=== PATIENT | female | born 1990 ===

== ENCOUNTER 2016-10-23 10:20 | Emergency (ER) | payer MEDICAID ==
[2016-10-23 10:21] VITALS: BMI 43.9
[2016-10-23 10:30] VITALS: BP 117/68; PULSE 76; RESP 20; TEMP 98.6; O2SAT 100
[2016-10-23] MEDS ORDERED: Sodium Chloride 0.9% 1,000 ML IV STA (12:06)
[2016-10-23] MEDS ORDERED: DiphenhydrAMINE 50 mg/ml Inj IVP STA (12:06)
--- NOTE | 2016-10-23 12:30 | ED PDOC ---
HPI: General Adult Time Seen by Provider: 10/23/16 12:27 Chief Complaint (Nursing): Chest Pain Chief Complaint (Provider): chest pain History Per: Patient History/Exam Limitations: no limitations Additional Complaint(s): 26yo F in ED for eval of EMERY x 3 months was seen at primary and neurologist- states she was never given a Dx but given "medication" not taking them because she doesn't like the feeling. PT states EMERY is unilateral( right) of face, with photo/phonopohbia, some nausea without vomiting, pressure sensation and weakness. PT with hx of lupus and HTN. not currently on medication for lupus. not worst EMERY of life. PT is supposed to be f.u with neurologist for MRI/ Past Medical History Reviewed: Historical Data, Nursing Documentation, Vital Signs Vital Signs: Last Vital Signs Temp 98.6 F 10/23/16 10:30 Pulse 76 10/23/16 10:30 Resp 20 10/23/16 10:30 BP 117/68 10/23/16 10:30 Pulse Ox 100 10/23/16 14:11 - Medical History PMH: Asthma, HTN (not on meds) - Family History Family History: States: Unknown Family Hx - Immunization History Hx Tetanus Toxoid Vaccination: No Hx Influenza Vaccination: No Hx Pneumococcal Vaccination: No - Home Medications Home Medications: Ambulatory Orders Medication Instructions Recorded Cephalexin [Keflex] 500 mg PO BID #14 capsule 07/18/16 Phenazopyridine [Phenazopyridine 200 mg PO TID #6 tab 07/18/16 HCl] Meclizine [Meclizine*] 25 mg PO Q6 #30 tab 10/23/16 - Allergies Allergies/Adverse Reactions: Allergies Allergy/AdvReac Type Severity Reaction Status Date / Time No Known Allergies Allergy Verified 10/23/16 10:24 Review of Systems ROS Statement: Except As Marked, All Systems Reviewed And Found Negative Constitutional: Negative for: Fever, Chills Cardiovascular: Positive for: Chest Pain Respiratory: Negative for: Cough, Shortness of Breath Neurological: Positive for: Headache Physical Exam - Reviewed Nursing Documentation Reviewed: Yes Vital Signs Reviewed: Yes - Physical Exam Appears: Positive for: Non-toxic, No Acute Distress, Uncomfortable Head Exam: Positive for: ATRAUMATIC, NORMAL INSPECTION, NORMOCEPHALIC Skin: Positive for: Normal Color, Warm, DRY Eye Exam: Positive for: EOMI, Normal appearance, PERRL Neck: Positive for: Normal, Painless ROM Cardiovascular/Chest: Positive for: Regular Rate, Rhythm Respiratory: Positive for: CNT, Normal Breath Sounds Gastrointestinal/Abdominal: Positive for: Normal Exam, Bowel Sounds, Soft. Negative for: Tenderness Neurologic/Psych: Positive for: Alert, Oriented - Laboratory Results Result Diagrams: 10/23/16 13:30 10/23/16 13:30 - ECG O2 Sat by Pulse Oximetry: 100 - Progress ED Course And Treament: impression-migraine like EMERY will get Reglan, Benadryl NS fluids and torodol Medical Decision Making Medical Decision Making: Pt with UTI symptoms pt has some improvement but still with nausea and dizziness will give meclinze and zofran. pt labs are otherwise unremarkable. Disposition - Clinical Impression Clinical Impression: Headache - Patient ED Disposition Is Patient to be Admitted: No Counseled Patient/Family Regarding: Studies Performed, Diagnosis, Need For Followup, Rx Given - Disposition Referrals: [facility] [Outside] Mani Torres MD [Staff Provider] - Disposition: Routine/Home Disposition Time: 16:49 Condition: STABLE Prescriptions: Meclizine [Meclizine*] 25 mg PO Q6 #30 tab Instructions: Migraine Headache (ED), Tension Headache (ED)
[2016-10-23] MEDS ORDERED: DiphenhydrAMINE 50 mg/ml Inj IM STA (13:38)
[2016-10-23 13:44] LABS: BASO % 0.5 % (0.0-2.0); EOS # 0.1 K/uL (0.0-0.7); EOS % 1.3 % (0.0-4.0); HEMATOCRIT 34.9 % (34.0-47.0); LYMPH # 3.2 K/uL (1.0-4.3); LYMPH % 32.3 % (20.0-40.0); MEAN CELL VOLUME 76.9 fl (81.0-99.0); MEAN CORPUSCULAR HEMOGLOBIN 24.7 pg (27.0-31.0); MEAN CORPUSCULAR HGB CONC 32.1 g/dL (33.0-37.0); MEAN PLATELET VOLUME 8.7 fl (7.2-11.7); MONO # 0.5 K/uL (0.0-0.8); MONO % 5.1 % (0.0-10.0); NEUT % 60.8 % (50.0-75.0); NRBC % 0.2 % (0.0-0.0); RED CELL DISTRIBUTION WIDTH 14.8 % (11.5-14.5); WHITE BLOOD COUNT 9.8 K/uL (4.8-10.8)
[2016-10-23 13:50] LABS: CHLORIDE 104 mmol/L (98-107); POTASSIUM 4.2 MMOL/L (3.6-5.0); RBC URINE 5 /hpf (0-3); SODIUM 138 mmol/l (132-148); URINE BACTERIA MOD (<OCC); URINE BILIRUBIN NEGATIVE (NEGATIVE); URINE BLOOD SMALL (NEGATIVE); URINE COLOR YELLOW (YELLOW); URINE GLUCOSE (UA) NEG (Normal); URINE KETONE NEGATIVE (NEGATIVE); URINE LEUKOCYTE ESTERASE SMALL Leu/uL (Negative); URINE PROTEIN NEGATIVE (NEGATIVE); URINE UROBILINOGEN 0.2-1.0 mg/dL (0.2-1.0); WBC URINE 19 /hpf (0-5)
[2016-10-23 13:52] LABS: BILIRUBIN,TOTAL 0.8 mg/dl (0.2-1.3); GFR AFRICAN-AMERICAN > 60
[2016-10-23 13:53] LABS: ALB/GLOB RATIO 1.1 (1.0-2.1); ALKALINE PHOSPHATASE 84 U/L (38-126); AST/SGOT 19 U/L (14-36); BLOOD UREA NITROGEN 13 mg/dl (7-17); CARBON DIOXIDE 24 mmol/L (22-30); GLUCOSE,RANDOM 78 mg/dL (65-105); TOTAL PROTEIN 7.4 G/DL (6.3-8.2)
[2016-10-23] MEDS ORDERED: DiphenhydrAMINE 50 mg/ml Inj ONE (13:56)
[2016-10-23 14:15] LABS: ALT/SGPT 22 U/L (9-52)
--- NOTE | 2016-10-25 18:24 | CARD ---
APPROVED REPORT EKG Measurement Heart [id number] <Conclusion> Normal sinus rhythm Low voltage QRS Borderline ECG
== END 2016-10-23 17:00 | disposition home or self-care (01) ==
LOC: H.ER 10:20
DX: R51 Headache (principal); I10 Essential (primary) hypertension